=== PATIENT | female | born 1950 | race Asian ===

== ENCOUNTER 2022-09-19 10:58 | Emergency (ER) | payer MEDICARE, MEDICAID ==
[~2022-09-19] VITALS: Ht 144.8 cm; Wt 70.9 kg
[~2022-09-19 10:58] MED LIST: FERR325T27 PO; IBUP-2071 PO; LEVE750T4 PO; MELO-381 PO; METO25XL PO; SIMV-261 PO
[2022-09-19] MEDS ORDERED: ValACYclovir HCL 500 MG TABLET PO ONE (12:45)
[2022-09-19] MEDS ORDERED: ACETAMINOPHEN 500 MG TABLET PO ONE (12:45)
[2022-09-19] MEDS ORDERED: VALA100026 PO (12:59)
[2022-09-19 13:15] VITALS: BP 140/99
== END 2022-09-19 13:15 | disposition home or self-care (01) ==
LOC: EMS 11:30
DX: B02.9 Zoster without complications (principal); I10 Essential (primary) hypertension; E78.00 Pure hypercholesterolemia, unspecified
CPT/HCPCS: 99283